=== PATIENT | female | born 1995 | race Asian ===

== ENCOUNTER 2020-11-26 16:09 | Emergency (ER) | payer OTHER ==
[~2020-11-26] VITALS: Ht 157.5 cm; Wt 71.4 kg
[2020-11-26] MEDS ORDERED: CETIRIZINE HCL 10 MG TABLET PO ONE (17:15)
[2020-11-26] MEDS ORDERED: FAMOTIDINE 20 MG TABLET PO ONE (17:15)
[2020-11-26] MEDS ORDERED: DEXAMETHASONE SOD PHOS 4 MG/ML 5 ML VIAL IM ONE (17:15)
[2020-11-26 18:25] VITALS: BP 128/71
== END 2020-11-26 18:26 | disposition home or self-care (01) ==
LOC: EMS 16:12
DX: T63.441A Toxic effect of venom of bees, accidental (unintentional), initial encounter (principal); F17.210 Nicotine dependence, cigarettes, uncomplicated
CPT/HCPCS: 96372; 99283; J1100

== ENCOUNTER 2024-11-25 23:39 | Emergency (ER) | payer OTHER ==
[~2024-11-25] VITALS: Ht 157.5 cm; Wt 57.7 kg
[2024-11-26 00:04] VITALS: TEMP 98.1
[2024-11-26] MEDS: LIDOCAINE 1% 10 ML VIAL SQ ONE (02:21)
[2024-11-26 03:00] VITALS: BP 112/83; PULSE 88; RESP 17; O2SAT 99
[2024-11-26] MEDS: OFLOXACIN 0.3% 5 ML OTIC SOLUTION AS ONE (03:20)
== END 2024-11-26 03:24 | disposition home or self-care (01) ==
LOC: EMS 23:41
DX: S00.452A Superficial foreign body of left ear, initial encounter (principal); F17.210 Nicotine dependence, cigarettes, uncomplicated; Z91.030 Bee allergy status; X58.XXXA Exposure to other specified factors, initial encounter; Y93.89 Activity, other specified; Y92.89 Other specified places as the place of occurrence of the external cause; Y99.8 Other external cause status
CPT/HCPCS: 99284; J3490